=== PATIENT | male | born 1970 | race Caucasian/White ===

== ENCOUNTER 2023-01-16 17:53 | Inpatient (IN) ==
[2023-01-16] MEDS ORDERED: methylPREDNISolone SOD SUCC 1000 MG ML VIAL IVPB ONE (18:35)
[2023-01-16] MEDS ORDERED: Famotidine IV 10 MG/ML 2 ml VIAL (20 mg) IV SLOW PU ONE (18:35)
[2023-01-16] MEDS ORDERED: methylPREDNISolone SOD SUCC 1,000 MG in NS 0.9% 250 ml 250 ML IVPB ONE (20:00)
[2023-01-16 20:08] LABS: ABS Basophils 0.1 10^3/ul (0-0.2); ABS Eosinophils 0.1 10^3/ul (0-0.6); ABS Monocytes 0.7 10^3/ul (0-0.8); ABS Neutrophils 7.1 10^3/ul (1.5-7.7); Eosinophil % 0.8 %; Hematocrit 41 % (42-52); Hemoglobin 14.9 g/dL (14.0-18.0); Lymphocyte % 19.8 %; Mean Corpuscular HGB Conc 36 g/dL (31-36); Mean Corpuscular Hemoglobin 31 pg (27-31); Mean Corpuscular Volume 86 fL (80-94); Mean Platelet Volume 8.1 fL (7.4-10.4); Platelet Count 257 10^3/uL (150-450); Red Blood Count 4.81 10^6 /uL (4.18-5.48); Red Cell Distribution Width 12 % (10-15)
[2023-01-16 20:16] LABS: INR 1.15 (0.88-1.18)
[2023-01-16 20:30] LABS: High Sens Troponin Baseline 4 pg/mL (<20)
[2023-01-16 20:45] LABS: ALT 22 U/L (7-52); AST 15 U/L (13-39); Albumin 4.3 g/dL (3.2-5.2); Albumin/Globulin Ratio 1.9 (1-3); Alkaline Phosphatase 61 U/L (35-149); Anion Gap 6 mmol/L (2-11); Blood Urea Nitrogen 13 mg/dL (6-24); C Reactive Protein < 1.00 mg/L (<8.01); CO2 Carbon Dioxide 28 mmol/L (22-32); Calcium 9.7 mg/dL (8.6-10.3); Chloride 104 mmol/L (101-111); Creatinine, Serum 0.69 mg/dL (0.67-1.17); Globulin 2.3 g/dL (2-4); Glucose 90 mg/dL (70-100); Lipase 13 U/L (11.0-82.0); Potassium 3.8 mmol/L (3.5-5.0); Sodium 138 mmol/L (135-145); Total Protein 6.6 g/dL (6.4-8.9)
[2023-01-16 21:20] LABS: Erythrocyte Sed Rate 3 mm/Hr (0-19)
[2023-01-16 21:28] LABS: Urine Appearance Clear; Urine Bilirubin Negative (Negative); Urine Blood Negative (Negative); Urine Color Yellow; Urine Glucose Negative (Negative); Urine Ketones 1+ (Negative); Urine Nitrite Negative (Negative); Urine Protein Negative (Negative); Urine Specific Gravity 1.024 (1.002-1.030); Urine Urobilinogen Negative (Negative)
[2023-01-16 21:40] LABS: High Sensitivity Troponin 1 Hr 3 pg/mL (<20)
[2023-01-17 14:27] LABS: Body Fluid Source Cerebral Spinal
[2023-01-17 14:44] LABS: Vitamin B12 262 pg/mL (180-914)
[2023-01-17 14:45] LABS: CSF Glucose 106 mg/dL (40-70)
[2023-01-17] MEDS ORDERED: Lactated Ringers 1000 ml BAG 1,000 ML IV SCH (15:00)
[2023-01-17 15:13] LABS: Body Fluid Appearance Clear; Body Fluid Color Colorless; CSF Tube # 4
[2023-01-17 15:42] LABS: Body Fluid Mono 5 %; Body Fluid Total Cells Counted 20; Body Fluid WBC 2 /mcL
[2023-01-17] MEDS ORDERED: methylPREDNISolone SOD SUCC 1,000 MG in NS 0.9% 1000 ml BAG 1,000 ML IVPB ONE (20:00)
[2023-01-18] MEDS ORDERED: methylPREDNISolone SOD SUCC 1,000 MG in NS 0.9% 250 ml 250 ML IVPB ONE (14:00)
[2023-01-18] MEDS ORDERED: methylPREDNISolone SOD SUCC 1000 MG ML VIAL IVPB ONE (14:00)
[2023-01-18 14:55] LABS: Vitamin D Total 25(OH) 14.9 ng/mL (20-50)
[2023-01-18 15:32] VITALS: BP 137/69
[2023-01-20 15:55] LABS: Anaplasma phagocytophilum Negative (Negative); B. miyamotoi PCR, B Negative (Negative); Babesia divergens/MO-1 Negative (Negative); Babesia ducani Negative (Negative); Ehrlichia chaffeensis Negative (Negative); Ehrlichia ewingii/canis Negative (Negative); Ehrlichia muris eauclairensis Negative (Negative)
[2023-01-20 16:12] LABS: Phospholipid Ab IgG < 9.4 GPL; Phospholipid Ab IgM, S < 9.4 MPL
[2023-01-21 11:12] LABS: Kappa Free Light Chain, CSF 2.49 mg/dL (<0.1000)
[2023-01-23 17:14] LABS: NMO/AQP4 IgG Negative (Negative)
== END 2023-01-18 16:00 | disposition home or self-care (01) | DRG 82 ==
LOC: ED 17:53 → EDHOLD 22:08
PROVIDERS: ADMIT Hospitalist; ATTEND Hospitalist